=== PATIENT | female | born 1965 | race Caucasian/White ===

== ENCOUNTER → 2016-11-07 | Outpatient (CLI) | payer BC ==
--- NOTE | 2016-11-12 12:24 | MAMMOGRAPHY REPORT ---
BILATERAL DIGITAL SCREENING MAMMOGRAM TOMOSYNTHESIS WITH CAD: 11/07/2016 CLINICAL HISTORY: Routine screening. Patient has no complaints. TECHNIQUE: Breast tomosynthesis in addition to standard 2D mammography was performed. Current study was also evaluated with a Computer Aided Detection (CAD) system. COMPARISON: Comparison is made to exams dated: 08/27/2011 mammogram, 09/04/2012 mammogram, 09/14/20 13 mammogram, and 12/29/2014 mammogram - [facility]. BREAST COMPOSITION: The tissue of both breasts is heterogeneously dense, which may obscure small ma sses. FINDINGS: There is a 5 mm nodular asymmetry in the far superior left breast, only seen on the MLO v iew, that was not clearly seen on prior mammograms. Although this could represent normal overlappin g fibroglandular tissue, additional spot compression tomosynthesis views and possibly ultrasound are recommended. There is possible architectural distortion in the lateral anterior left breast on CC tomosynthesis slice 3336, for which additional spot compression tomosynthesis views and possibly ul trasound are recommended. There is a possible partially circumscribed and partially obscured 8mm ma ss in the middle one third of the left breast, along the posterior nipple line on the MLO view, jennifer anting additional spot compression tomosynthesis views and possibly ultrasound. No suspicious mass, architectural distortion or cluster of microcalcifications is seen within the ri ght breast. IMPRESSION: ACR BI-RADS CATEGORY 0: INCOMPLETE EVALUATION: NEED ADDITIONAL IMAGING EVALUATION The left superior asymmetry, possible architectural distortion in the lateral left breast and possib le 8mm mass in the left breast need additional imaging evaluation. The patient will be called to schedule an appointment. Approximately 10% of breast cancers are not detected with mammography. A negative mammographic repor t should not delay biopsy if a clinically suggestive mass is present. Fanny Colunga M.D. ay/:11/11/2016 21:15:23 [employer] Paper: Emilia RAMON)(Alexis)(BD), [facility] letter sent: Addl Imaging 0 BI-RADS Code: ACR BI-RADS Category 0: Incomplete Evaluation: Need Additional Imaging Evaluation
== END | disposition home or self-care (01) ==
LOC: C.MAMM 09:26
PROVIDERS: ATTEND Obstetrics & Gynecology
DX: Z12.31 Encounter for screening mammogram for malignant neoplasm of breast (principal); N64.9 Disorder of breast, unspecified

== ENCOUNTER → 2016-11-14 | Outpatient (CLI) | payer BC ==
--- NOTE | 2016-11-14 15:37 | MAMMOGRAPHY REPORT ---
UNILATERAL LEFT DIGITAL DIAGNOSTIC MAMMOGRAM TOMOSYNTHESIS AND TARGETED LEFT ULTRASOUND: 11/14/2016 CLINICAL HISTORY: Callback from screening mammogram for left breast asymmetries and possible distort ion. TECHNIQUE: Breast tomosynthesis in addition to standard 2D mammography was performed. Spot edilma kris left CC and MLO 2-D and tomosynthesis images were obtained. COMPARISON: Comparison is made to exams dated: 11/07/2016 mammogram - [facility], 12/29/2014 mammogram, 09/14/2013 mammogram, 09/04/2012 mammogram, and 08/27/2011 mammogram - [facility]. BREAST COMPOSITION: The tissue of the left breast is heterogeneously dense, which may obscure small masses. FINDINGS: The previously described area of possible architectural distortion in the left lateral pe riareolar anterior breast does not persist on the additional spot compression views, with appearance of this region similar to prior exams including the tomosynthesis images from the 2015 exam. The p reviously described asymmetry seen within the left superior breast at the appearance of fibroglandul ar tissue on the tomosynthesis images, and appears similar to the 2015 exam. The previously asymmet ry along the posterior nipple line on the MLO view does not persist on the additional images, and zamora s the appearance of normal fibroglandular tissue. Targeted ultrasound was performed of the left far superior breast in the region of the mammographic asymmetry. In the left breast at 1:00, 10 cm from the nipple, there is a focal island of normal-mellissa earing fibroglandular tissue, which is felt to correlate with the mammographic asymmetry and is mina gn. Targeted ultrasound was performed of the left lateral periareolar breast in the region of the p ossible architectural distortion, which shows no suspicious masses or other suspicious sonographic a bnormalities. IMPRESSION: ACR BI-RADS CATEGORY 2: BENIGN, TARGETED ULTRASOUND ACR BI-RADS CATEGORY 2: BENIGN The left superior breast asymmetry is benign and compatible with normal fibroglandular tissue. No p ersistent architectural distortion is seen in the left lateral anterior breast on the additional vie ws. There is no mammographic or targeted sonographic evidence of malignancy. A 1 year screening librado mogram is recommended. The patient has been verbally notified of the results. Approximately 10% of breast cancers are not detected with mammography. A negative mammographic repor t should not delay biopsy if a clinically suggestive mass is present. Keely Neville M.D. ah/:11/14/2016 14:38:58 Compliance Mgr: Joelle RAMIREZ(Rylan)(M), [facility] letter sent: Normal 1/2 BI-RADS Code: ACR BI-RADS Category 2: Benign Ultrasound BI-RADS: ACR BI-RADS Category 2: Benign
== END | disposition home or self-care (01) ==
LOC: C.MAMM 14:12
PROVIDERS: ATTEND Obstetrics & Gynecology
DX: R92.8 Other abnormal and inconclusive findings on diagnostic imaging of breast (principal)

== ENCOUNTER → 2018-03-19 | Day surgery (SDC) | payer OTHER ==
--- NOTE | 2018-03-03 18:13 | HISTORY & PHYSICAL EXAMINATION ---
DATE OF ADMISSION: 03/19/2018 CHIEF COMPLAINT: Abnormal vaginal bleeding, polyp on transvaginal ultrasound. HISTORY OF PRESENT ILLNESS: The patient is a 52-year-old 3, para 2, 1 spontaneous AB. General health is good. She has had an irregular bleeding pattern for over 8 months. Her periods are every 28-50 days, they last for about 4-5 days. She has 1-2 heavy days where she has clotting, soaking over a pad an hour. Cramps are mild. However, she also has intermittent bleeding between her periods and this can at times be quite heavy with soaking a pad an hour. A transvaginal ultrasound done on 03/03/2018, it showed an endometrial polyp 0.9 cm x 0.6 cm x 0.9 cm, presently being scheduled for an outpatient D and C, hysteroscopy, polypectomy. PAST MEDICAL HISTORY: Two children in good health. ALLERGIES: She has no known drug allergies. PAST SURGICAL HISTORY: She had her hemorrhoids taken out. MEDICAL HISTORY: No history of rheumatic fever, heart disease, heart murmur, diabetes, tuberculosis. SOCIAL HISTORY: No smoking, no excessive alcohol intake. Works as a professor at [employer]. FAMILY HISTORY: Mom is 82 in good health. Father at age 82 of heart failure and infection. Three brothers, 2 sisters in good health. REVIEW OF SYSTEMS: HEAD: No symptoms of frequent or severe headaches. EYES: No symptoms of blurred vision, double vision. EARS: No symptoms of frequent ear infections, difficulty hearing. NOSE: No symptoms of frequent nosebleeds, difficulty breathing through her nose. PHYSICAL EXAMINATION: GENERAL: Well-developed, well-nourished 52-year-old white female, alert, oriented x3 and cooperative, no acute distress, appears her stated age. EYES: Conjunctivae are pink. Sclerae white, no evidence of jaundice. EARS: Had normal light reflex bilaterally. NOSE: Had normal mucosa. Septum is midline. There were no polyps. THROAT: Had no erythema or evidence of infection. Teeth are in good state of repair. HEAD: Was normocephalic, normal distribution of hair. NECK: Supple. Trachea midline. Thyroid is not enlarged. There is no adenopathy appreciated. Both carotids are of good intensity. CHEST: Clear to auscultation and percussion. No wheezes, rales or rhonchi appreciated. HEART: Had regular rhythm. S1 and S2 are normal. BREASTS: Normal. ABDOMEN: Soft and nontender. PELVIC: Cervix appeared normal. Uterus is about 9 weeks' size. There were no adnexal masses appreciated. MUSCULOSKELETAL: Revealed no calf tenderness. IMPRESSIONS OF THIS CASE: Symptomatic endometrial polyp. MTDD
[2018-03-09 13:01] VITALS: Ht 162.6 cm; Wt 62.7 kg
[~2018-03-19] VITALS: Ht 162.6 cm; Wt 62.7 kg
[~2018-03-19] MED LIST: ATROPINE SULFATE 0.1 MG/ML 5ML SYR IV PRN; DEXAMETHASONE SOD INJ 4 MG/ML VIAL ONE; EpHEDrine SULFATE INJ 50 MG/ML AMP IV PRN; FENTANYL CITRATE INJ 50 MCG/1 ML 2 ML VIAL IV PRN; FENTANYL CITRATE INJ 50 MCG/1 ML 2 ML VIAL ONE; HYDROCODONE/ACETAMIN 5/325MG TAB PO PRN; IBUPROFEN 200 MG TAB ONE; IBUPROFEN 600 MG TAB PO PRN; KETOROLAC TROMETHAMINE 30 MG/ML VIAL IV. PRN; KETOROLAC TROMETHAMINE 30 MG/ML VIAL ONE; LACTATED RINGER'S 1000ML 1,000 ML IV SCH; LIDOCAINE HCL 2% 2 ML VIAL (20MG/ML) ONE; MIDAZOLAM HCL 1 MG/ML 2ML VIAL ONE; ONDANSETRON INJ 2 MG/ML 2 ML VIAL IV PRN; ONDANSETRON INJ 2 MG/ML 2 ML VIAL ONE; OXYCODONE/ACETAMINOPHEN 5-325 TAB PO PRN; PROPOFOL IV EMULSION 10 MG/ML 20 ML VIAL ONE; SODIUM CHLORIDE 0.9% 1000ML 1,000 ML IV SCH
--- NOTE | 2018-03-19 11:03 | History & Physical Bridge Note ---
H&P Re-Evaluation Bridge Note: I have examined the patient, reviewed the History & Physical and in the interval since the performance of the History & Physical I have noted the following changes of clinical significance: No changes noted
--- NOTE | 2018-03-19 11:36 | [facility] Post Operative Brief Note ---
Immediate Operative Summary Operative Date Mar 19, 2018. Pre-Operative Diagnosis Abnormal bleeding pattern and polyp Post-Operative Diagnosis Abnormal bleeding pattern and polyp utreus sounded to 9 cm Procedure(s) Performed Dilatation And Curettage, Hysteroscopy, Polypectomy Surgeon Dr. Lacho Hirsch [facility] Sales Consultant Surgeon(s) None Estimated Blood Loss 50ml Findings Consistent with Post-Op Diagnosis Fluids (cc crystalloids) 900 ml Specimens A: Endometrial polyp B: Endometrial curettings Drains None Anesthesia Type General Complication(s) none Disposition Accompanied Pt To Recover: no Disposition: Recovery Room / PACU Overlapping Procedure I was immediately available: during the entire case
--- NOTE | 2018-03-19 11:45 | Discharge Instructions-SurgCtr ---
Discharge Instructions Date of Service Mar 19, 2018. Visit Reason for Visit: Irregular Vaginal Bleeding, Endometrial Polyp Discharge Discharge Diagnosis / Problem: irregular vaginal bleeding endometrial polyp Discharge Goals Goal(s): Learn about illness, Therapeutic intervention Activity Recommendations Activity Limitations: as noted below ACTIVITY RECOMMENDATIONS: * Avoid tampons, douching, hot tubs, pools, and intercourse until bleeding has stopped. * May shower as usual. * No strenuous activity for 24-48 hours. After 24-48 hours, you may do anything you feel like doing (driving and sports are okay). SPECIAL CARE INSTRUCTIONS: Special Diet: * Mild nausea may occur in the immediate post-operative period. * Take clear liquids such as tea, cola or bouillon until all nausea has subsided; you may then resume your normal diet. Special Care: * Light bleeding and vaginal spotting can last from a few days to 3-4 weeks. Call your doctor if bleeding becomes heavier than the heaviest part of your period. * Check your temperature twice a day for one week. If it goes above 100.4 degrees Fahrenheit (38.0 Celsius), notify your doctor. * Call your doctor's office for an appointment for 6 weeks after your surgery. FOLLOW-UP VISIT: Call your doctor's office for an appointment for 6 weeks after your surgery. Anesthesia . Post Anesthesia Instructions: If you have had General Anesthesia or IV Sedation: * Do not drive today. * Resume driving when surgeon permits. * Do not make important decisions or sign legal documents today. * Call surgeon for: 1. Temperature elevations greater than 101 degrees F. 2. Uncontrollable pain. 3. Excessive bleeding. 4. Persistent nausea and vomiting. 5. Medication intolerance (nausea, vomiting or rash). * For nausea and vomiting use only clear liquids such as: tea, soda, bouillon until nausea subsides, then gradually increase diet as tolerated. * If you have any concerns or questions, call your surgeon's office. If physician is unavailable and it is an emergency, call 911 or go to the nearest emergency room. . Instructions / Follow-Up Instructions / Follow-Up ACTIVITY RECOMMENDATIONS: * Avoid tampons, douching, hot tubs, pools, and intercourse until bleeding has stopped. * May shower as usual. * No strenuous activity for 24-48 hours. After 24-48 hours, you may do anything you feel like doing (driving and sports are okay). SPECIAL CARE INSTRUCTIONS: Special Diet: * Mild nausea may occur in the immediate post-operative period. * Take clear liquids such as tea, cola or bouillon until all nausea has subsided; you may then resume your normal diet. Special Care: * Light bleeding and vaginal spotting can last from a few days to 3-4 weeks. Call your doctor if bleeding becomes heavier than the heaviest part of your period. * Check your temperature twice a day for one week. If it goes above 100.4 degrees Fahrenheit (38.0 Celsius), notify your doctor. * Call your doctor's office for an appointment for 6 weeks after your surgery. FOLLOW-UP VISIT: Call your doctor's office for an appointment for 6 weeks after your surgery. Diet Recommendations Home Diet: resume previous diet Procedures Procedures Performed: Dilatation And Curettage, Hysteroscopy, Polypectomy Pending Studies Studies pending at discharge: no Medical Emergencies . Who to Call and When: Medical Emergencies: If at any time you feel your situation is an emergency, please call 911 immediately. . Non-Emergent Contact Non-Emergency issues call your: Chief Technical Officer Call Non-Emergent contact if: temperature is above 100.5 . . "Provider Documentation" section prepared by Lacho Hirsch. .
--- NOTE | 2018-03-19 12:07 | Anesthesia Progress Nt - [facility] ---
Anesthesia Post Op Note Date & Time Mar 19, 2018 at 12:07 Vital Signs Pain Intensity: 0 Vital Signs Past 12 Hours Date Time Temp Pulse Resp B/P (MAP) Pulse Ox O2 Delivery O2 Flow Rate FiO2 03/19/18 11:50 109/71 03/19/18 11:49 71 11 03/19/18 11:49 74 11 98 03/19/18 11:45 101/64 03/19/18 11:44 68 03/19/18 11:44 81 103/66 96 03/19/18 11:44 36.2 76 12 103/66 96 Diffusion Mask 6 03/19/18 07:29 36.6 70 16 111/76 (88) 98 Room Air Notes Mental Status: alert / awake / arousable, participated in evaluation Pt Amnestic to Procedure: Yes Nausea / Vomiting: adequately controlled Pain: adequately controlled Airway Patency, RR, SpO2: stable & adequate BP & HR: stable & adequate Hydration State: stable & adequate Anesthetic Complications: no major complications apparent
--- NOTE | 2018-03-19 12:28 | OPERATIVE REPORT ---
DATE OF OPERATION: 03/19/2018 PROCEDURES: D&C, hysteroscopy, polypectomy. INDICATIONS FOR SURGERY: Irregular heavy vaginal bleeding. PREOPERATIVE DIAGNOSIS: Endometrial polyp on transvaginal ultrasound. POSTOPERATIVE DIAGNOSIS: Polyp confirmed by hysteroscopy. Uterus sounded to 9 cm. SURGEON: Dr. Hirsch. ESTIMATED BLOOD LOSS: 50 mL ANESTHESIA: General. OPERATIVE FINDINGS AND PROCEDURE: Patient was brought to the OR table, correctly identified by armband and conversation. General anesthesia was administered. Perineum and vagina were painted with Betadine paint, draped in usual sterile fashion. Careful pelvic exam under anesthesia revealed a mid position uterus. There were no adnexal masses appreciated. Weighted speculum was placed in posterior vagina. Anterior lip of cervix grasped with single tooth tenaculum. Uterus sounded to 9 cm. Cervix was dilated with graduated dilators. Hysteroscope was placed in the uterine cavity. Photographs were taken. The endometrial polyp was identified and the right tubal ostia was identified. The left tubal ostia was not. Instruments were removed and then a polyp forceps was used to remove the polyp after a couple attempts, then I used a small sharp serrated curet to thoroughly curette out the entire endometrial cavity, some additional pieces of tissue were obtained. The polyp and the scrapings were sent separately. Following this, we reintroduced the hysteroscope, documented that the polyp had been removed and following this, hemostasis was good. Instruments were removed. Patient tolerated the procedure well and left the OR in good condition. I attest to the content of the Intraoperative Record and any orders documented therein. Any exception s are noted below.
[2018-03-19 12:31] VITALS: TEMP 36.6
[2018-03-19 12:51] VITALS: BP 116/71; PULSE 48; O2SAT 100
== END | disposition home or self-care (01) ==
LOC: X.SURG 07:06
PROVIDERS: ATTEND Obstetrics & Gynecology
DX: N93.9 Abnormal uterine and vaginal bleeding, unspecified (principal)

== ENCOUNTER 2018-04-13 21:16 | Emergency (ER) | payer OTHER ==
[2018-04-13 21:17] VITALS: TEMP 36.7; Ht 162.6 cm
[2018-04-13] MEDS ORDERED: KETOROLAC TROMETHAMINE 60 MG/2 ML VIAL IM STA (21:34)
--- NOTE | 2018-04-13 23:02 | DIAGNOSTIC IMAGING REPORT ---
PELVIS 1 OR 2 VIEW ROUTINE, R FEMUR 2 VIEWS ROUTINE CLINICAL HISTORY: Fall, R hip and posterior R leg pain COMPARISON STUDY: None. FINDINGS: No fracture or dislocation within the pelvis, hips, or right femur. Soft tissues are unremarkable. No radiopaque foreign bodies. IMPRESSION: No fractures within the pelvis, hips, or right femur. Electronically signed by: Zachary Villasenor M.D. 04/13/2018 11:00 PM Dictated Date/Time: 04/13/2018 10:59 PM
--- NOTE | 2018-04-13 23:08 | EMERGENCY ROOM VISIT NOTE ---
History First contact with patient: 21:27 Chief Complaint: LEG PAIN,LEG INJURY Stated Complaint: PAIN IN RT LEG History of Present Illness The patient is a 52 year old female who presents to the Emergency Room via private vehicle accompanied by family with complaints of "pain in right leg". The patient states that just prior to arrival, while at home she was walking and tripped over the dog noting that she did a near split with her legs. She states that now she has pain in the posterior right thigh extending to her right hip region. She rates the pain as a 6/10. She denies striking her head, loss of consciousness, abdominal pain, head or neck pain. Review of Systems A complete 6-point Review of Systems was discussed with the patient, with pertinent positives and negatives listed in the History of Present Illness. All remaining Review of Systems questions can be considered negative unless otherwise specified. Past Medical/Surgical History No pertinent. Family History No pertinent. Social History Smoking Status: Never Smoker Patient lives locally. Current/Historical Medications No Active Prescriptions or Reported Meds Physical Exam Vital Signs Date Time Temp Pulse Resp B/P (MAP) Pulse Ox O2 Delivery O2 Flow Rate FiO2 04/13/18 23:17 68 18 120/75 96 Room Air 04/13/18 21:17 36.7 80 18 151/79 95 Room Air Physical Exam VITAL SIGNS - Vital signs and nursing notes were reviewed. Stable. Afebrile. GENERAL -52-year-old female appearing her stated age who is in no acute distress. Communicates well with provider and answers questions appropriately. SKIN - Without rashes. No meningeal or petechial rash. The integument is intact overlying the right lower extremity. No bony deformity noted. HEAD - NC/AT. EYES -no hyphema. EARS -no blood from the ear canals. NOSE -no epistaxis. MOUTH/OROPHARYNX - Without perioral cyanosis. NECK -no C-spine tenderness. LUNGS - Chest wall symmetric without accessory muscle use, intercostals retractions, or central cyanosis. Normal vesicular breath sounds CTA B/L. No wheezes, rales, or rhonchi appreciated. CARDIAC - RRR with S1/S2. No murmur, rubs, or gallops appreciated. EXTREMITIES - No clubbing or peripheral cyanosis. No pretibial edema present. There is point tenderness overlying the musculature of the patient's entire right posterior thigh/hamstring region. There is no rolled muscle or evidence of complete detachment. Decreased range of motion noted of the hip region. Patient is able to flex at the knee and hip. Tendinous insertion sites appear intact. There is no quadriceps tenderness. No bony tenderness overlying the remainder of the pelvis or knee region. Extremity below the right knee is unremarkable. Excellent neurovascular status distally. +5/5 strength noted in UE/LE bilaterally. Medical Decision & Procedures ER Provider Diagnostic Interpretation: PELVIS 1 OR 2 VIEW ROUTINE, R FEMUR 2 VIEWS ROUTINE CLINICAL HISTORY: Fall, R hip and posterior R leg pain COMPARISON STUDY: None. FINDINGS: No fracture or dislocation within the pelvis, hips, or right femur. Soft tissues are unremarkable. No radiopaque foreign bodies. IMPRESSION: No fractures within the pelvis, hips, or right femur. Electronically signed by: Zachary Villasenor M.D. 04/13/2018 11:00 PM Dictated Date/Time: 04/13/2018 10:59 PM Medications Administered Medications (Trade) Dose Ordered Sig/Nemesio Route Start Time Stop Time Status Last Admin Dose Admin Ketorolac Tromethamine (Toradol Inj) 60 mg NOW STAT IM 04/13/18 21:34 04/13/18 21:35 DC 04/13/18 22:01 60 MG Medical Decision Patient was seen and evaluated as above in room D9. Review was performed of nursing notes and vital signs. After obtaining a thorough history and physical examination the above work up was performed. She presents to us today with right posterior thigh pain. I suspect musculoskeletal strain. No evidence of complete detachment on my examination here today. X-ray was obtained of the pelvis and right femur. These were unremarkable. I suspect musculoskeletal strain but did inform her upon importance of follow-up in the event of persistence of symptoms. She was given crutches to be nonweightbearing and an Ocdy wrap for compression. At this time the joint above and below her area of pain are intact. Pain is mostly as discussed in the right posterior thigh region. She is to call orthopedics first thing tomorrow or return with worsening. She declined pain medication for discharge but was given Toradol here for pain and noted improvement. The patient was educated upon management, had questions answered prior to discharge, and was discharged home in good condition. In the evaluation and treatment of this patient, the following differential diagnoses were considered: Hip Fracture, Hip Dislocation, Greater Trochanteric Bursitis, Musculoskeletal Pain, Lumbar Radiculopathy. Impression Primary Impression: Leg pain, right Additional Impression: Hamstring injury Departure Information Dispostion Home / Self-Care Condition GOOD Prescriptions No Active Prescriptions or Reported Meds Referrals Emilia Sher M.D. (PCP) Tavon Zamora M.D. Patient Instructions My [facility] Additional Instructions You have been treated in the Emergency Department for Hip Pain. For pain control, you can use the following [id number]-[id number] medicines (if >12 yo): - Regular strength (325mg/tab) Tylenol (acetaminophen) 2 tabs every 4-6 hours as needed. Do not exceed 12 tablets in a 24 hour period. Avoid taking more than 3 grams (3000 mg) of Tylenol per day. This includes any other sources of acetaminophen you may take on a regular basis. - Regular strength (200 mg/tab) Advil (ibuprofen) 1-2 tabs every 4-6 hours as needed. Do not exceed a dose of 3200 mg per day. If this is a recent injury (<24 hrs), ice can be applied to the area of pain for the first 3 days to help decrease pain and inflammation. Ice massages can be performed by freezing water in a paper cup, peeling back the cup to expose the ice and then massaging over the affected area. You have been provided the number for an Orthopaedic Surgeon. You should call this number as soon as possible to establish a follow-up visit from today's Emergency Department visit. Be cautious with your hip movements until your pain is tolerable. Use the crutches you have been provided to keep ALL weight off of the hip until weight bearing is tolerable. Return to the Emergency Department if your current symptoms worsen despite treatment course outlined above. Problem Qualifiers
[2018-04-13 23:17] VITALS: BP 120/75; PULSE 68; O2SAT 96
== END 2018-04-13 23:31 | disposition home or self-care (01) ==
LOC: C.EDB 21:17 → C.EDD 23:31
DX: S76.301A Unspecified injury of muscle, fascia and tendon of the posterior muscle group at thigh level, right thigh, initial encounter (principal); W01.0XXA Fall on same level from slipping, tripping and stumbling without subsequent striking against object, initial encounter; Y92.009 Unspecified place in unspecified non-institutional (private) residence as the place of occurrence of the external cause

== ENCOUNTER 2020-06-05 05:34 | Observation (INO) ==
--- NOTE | 2020-05-17 10:00 | PAT Medication Instructions ---
Medication Instructions Date of Service May 17, 2020 Home Medications ibuprofen 400 mg PO Q6H PRN ASK your surgeon for instructions ibuprofen 400 mg PO Q6H PRN Other Notes If you have any questions please call us at [phone] or [phone] or [phone] or [phone]
--- NOTE | 2020-05-18 12:11 | Anesthesiology Consultation ---
Date of Service May 18, 2020 Assessment & Plan (1) Encounter for pre-operative examination: Chart Review Chart Review: Acceptable Risk for Surgery (pending preop Covid testing ) and Patient seen in Pre Admission Testing Discussed preop EKG with Dr. Quarles- EKG unchanged from 2018. Pt has good functional status. Patient able to proceed with surgery as scheduled - Check test AM DOS Per PAT appt on 05/18/20, patient traveled to [place] to go camping- no contacts by others. Wears mask in public. Returned to [place] 05/07/20. Educated patient to follow up with surgeon's office regarding Covid testing. Educated on importance of self quarantining, social distancing and wearing mask in public both for the patient and household contacts. Teaching & Discussion Pre-Anesthesia Teaching/Discussion Notes: Instructed NPO after midnight before surgery,except medications with 15 cc of water. Medication instructions provided according to the [facility] guidelines. History Surgery Operation Date: 06/05/20 07:30 Proposed Procedures p Robotic Total Laparoscopic Hysterectomy - Cindy Carmen MD, FACOG Height/Weight Height: 5 ft 4 in Weight: 61.8 kg Allergies Allergy/AdvReac Type Severity Reaction Status Date / Time No Known Drug Allergies Allergy Verified 05/18/20 11:01 Medications Home Medications Medication Instructions Recorded Confirmed Last Taken ibuprofen 400 mg PO Q6H PRN 05/08/20 05/18/20 Unknown Past Medical History Medical History Endometrial polyp x 2 Postmenopausal bleeding (10/2019) Exercise / Class Metabolic Activity II 4-5 Yardwork/Stairs/Walk up hill (one flight of stairs- no chest pain or SOB) Past Family History Family History Denies family history of Cervical cancer Ovarian cancer Deep vein thrombosis Coronary heart disease Breast cancer Colorectal cancer Uterine cancer Past Surgical History Surgical History H/O dilation and curettage (2017) x2 for endometrial polyp History of colonoscopy (2015) Hx of melanoma of skin with removal to right forearm S/P tubal ligation Status post wisdom tooth extraction Past Anesthesia History No Hx of Anesthesia Complications and No Family Hx of Anesthesia Complications History of PONV No Hx of PONV and No Hx of Motion Sickness Social History Smoking Status: Never smoker Do You Dip or Chew Tobacco: No Hx Alcohol Use: Yes Alcohol type: wine alcohol intake frequency: a few times a week Hx Substance Use: No substance use type: does not use Review of Systems Patient denies chest pain, shortness of breath, dyspnea on exertion, reflux, cough, wheezing, palpitations. No hx of seizures, stroke, DC, apnea/snoring. No hx of blood clots or blood transfusions Physical Exam Vital Signs VITALS BP 110/76 P 82 TEMP 98.2 SP02 97% RESP 16 Constitutional no acute distress ENMT Mouth: no TMJ clicking Thyromental Distance: < 3.5 Finger Breadths (3.0) Mallampati Class: III Teeth pulled directly behind incisors bilaterally on top teeth Neck neck extension not limited Respiratory normal respiratory effort; no respiratory distress Auscultation: lungs clear to auscultation bilaterally; no wheezes Cardiovascular Rate/Rhythm: regular rate and regular rhythm (with extra beat ) Heart Sounds: no murmur Vessels: no carotid bruit Musculoskeletal Spine: no pain with cervical ROM Neurologic moves all extremities Psychiatric Orientation: alert Testing Laboratory Results 05/18/20 12:39 05/18/20 12:34 Blood Type A Positive 05/18/20 12:39 Antibody Screen NEGATIVE 05/18/20 12:39 Electrocardiogram Date: 05/18/20 Sinus rhythm with PACs in a pattern of bigeminy at 60 bpm. Otherwise normal EKG. Per cardio- no significant change from March 11, 2018.
[2020-05-18 13:20] LABS: Basophils # (auto) 0.04 K/uL (0-0.2); Basophils % (auto) 0.6 %; Eosinophils # (auto) 0.04 K/uL (0-0.5); Eosinophils % (auto) 0.6 %; Hematocrit (blood only) 43.2 % (37-47); Hemoglobin 14.5 g/dL (12.0-16.0); Immature Granulocytes # (auto) 0.03 K/uL (0.00-0.02); Immature Granulocytes % (auto) 0.5 %; Lymphocytes # (auto) 2.73 K/uL (1.2-3.4); Lymphocytes % (auto) 42.2 %; Mean Corpuscular Hemoglobin 31.1 pg (25-34); Mean Corpuscular Hgb Conc 33.6 g/dL (32-36); Mean Corpuscular Volume 92.7 fL (80-100); Mean Platelet Volume 10.8 fL (7.4-10.4); Monocytes # (auto) 0.36 K/uL (0.11-0.59); Monocytes % (auto) 5.6 %; Neutrophils # (auto) 3.27 K/uL (1.4-6.5); Neutrophils % (auto) 50.5 %; Platelet Count 274 K/uL (130-400); RDW Coefficient of Variation 13.6 % (11.5-14.5); RDW Standard Deviation 45.9 fL (36.4-46.3); Red Blood Count 4.66 M/uL (4.2-5.4); White Blood Count 6.47 K/uL (4.8-10.8)
[2020-05-18 15:40] LABS: BUN Creatinine Ratio 17.6 (10-20); Calcium 9.6 mg/dl (8.5-10.1); Creatinine Clr Calc Pharmacy 64.6 ml/min; Est GFR (African American) 89.4; Est GFR (Non-African American) 77.1; Potassium 4.5 mmol/L (3.5-5.1)
--- NOTE | 2020-05-19 06:49 | Electrocardiogram Report ---
Test Reason : Blood Pressure : / mmHG Vent. Rate : 060 BPM Atrial Rate : 060 BPM P-R Int : 180 ms QRS Dur : 078 ms QT Int : 444 ms P-R-T Axes : 067 055 072 degrees QTc Int : 444 ms Sinus rhythm with Premature atrial complexes in a pattern of bigeminy Otherwise normal ECG When compared with ECG of 11-MAR-2018 15:08, No significant change was found Confirmed by Seven Starks ([id number]) on 05/19/2020 6:49:44 AM Referred By: Cindy Carmen Confirmed By:Seven Starks
[2020-06-05] MEDS ORDERED: CEFAZOLIN 2000MG 2,000 MG/15 ML SYR IV SCH (06:00)
[2020-06-05] MEDS ORDERED: LACTATED RINGER'S 1,000 ML IV SCH ×2 (06:00→11:15)
[2020-06-05] MEDS ORDERED: LR 15ML/HR IV SCH (06:00)
--- NOTE | 2020-06-05 07:03 | History & Physical Bridge Note ---
Date of Service June 05, 2020 History & Physical Bridge Note I have examined the patient, reviewed the History & Physical and in the interval since the performance of the History & Physical I have noted the following changes of clinical significance: no changes noted
[2020-06-05] MEDS ORDERED: ONDANSETRON INJ 2 MG/ML 2 ML VIAL ONE (07:14)
[2020-06-05] MEDS ORDERED: LIDOCAINE HCL 2% 2 ML VIAL/AMP(20MG/ML) INFIL ONE (07:14)
[2020-06-05] MEDS ORDERED: GLYCOPYRROLATE 0.2 MG/ML VIAL ONE (07:14)
[2020-06-05] MEDS ORDERED: fentaNYL citrate 100 MCG/2 ML VIAL ONE (07:14)
[2020-06-05] MEDS ORDERED: DEXAMETHASONE SOD INJ 4 MG/ML VIAL ONE (07:14)
[2020-06-05] MEDS ORDERED: ROCURONIUM BROMIDE 10 MG/ML 5 ML VIAL IV ONE (07:14)
[2020-06-05] MEDS ORDERED: NEOSTIGMINE METHYLSULFATE 5 MG/5 ML SYR ONE (07:14)
[2020-06-05] MEDS ORDERED: PROPOFOL IV EMULSION 10 MG/ML 20 ML VIAL IV ONE (07:14)
[2020-06-05] MEDS ORDERED: MIDAZOLAM HCL 1 MG/ML 2ML VIAL ONE (07:14)
[2020-06-05] MEDS ORDERED: BUPIVACAINE 0.5 % 5 MG/1 ML MPF 30ML VIAL ONE (07:26)
[2020-06-05] MEDS ORDERED: PROMETHAZINE HCL 12.5 MG in SODIUM CHLORIDE 0.9% 50 ML IV PRN ×2 (08:26→11:15)
[2020-06-05] MEDS ORDERED: ONDANSETRON INJ 2 MG/ML 2 ML VIAL IV PRN ×2 (08:26→11:15)
[2020-06-05] MEDS ORDERED: ePHEDrine sulfate 50 MG/ML AMP IV PRN (08:26)
[2020-06-05] MEDS ORDERED: HYDROmorphone INJ 1 MG/ML SYRINGE IV PRN (08:26)
[2020-06-05] MEDS ORDERED: ATROPINE SULFATE 0.1 MG/ML 10ML SYR IV PRN (08:26)
[2020-06-05] MEDS ORDERED: TISSEEL FIBRIN SEALANT 4ML TOP ONE (08:34)
[2020-06-05] MEDS ORDERED: METHYLENE BLUE 0.5% 10 ML VIAL ONE (08:45)
--- NOTE | 2020-06-05 09:56 | Operative Report ---
PG Post Operative Report Pre & Post Diagnosis Operation Date: 06/05/20 07:30 Pre-Op Diagnosis: Post Menopausal Bleeding Post-Op Diagnosis: Post Menopausal Bleeding I identified the patient and participated in the time-out.: Yes Procedure Operation Date: 06/05/20 07:30 Actual Procedures p Robotic Total Laparoscopic Hysterectomy, Bilateral Salpingectomy, Cystoscopy - Cindy Carmen MD, FACOG Surgeon Cindy Carmen MD, FACOG Leather Splitter . Estimated Blood Loss 20 Findings Consistent with Post-Op Diagnosis Specimens Uterus cervix bilateral fallopian tubes Description of Procedure Patient was given a general anesthetic, prepped and draped in dorsal lithotomy position in yellow fin luís stirrups. Care was taken to position the legs and arms properly with no excess pressure on any area. Pre-operative antibiotics were given and SCDs applied earlier. Nathan catheter was inserted into her bladder, V-Care manipluator was placed in the uterus and sutured in place. Gloves were changed and then a supra-umbilical incision was made with scalpel, using David technique, we dissected through the subcutaneous fat, fascia, split the rectus muscles and then entered the peritoneal cavity.. Blunt tip David Trochar then inserted and balloon inflated to stabilize the port. CO2 gas was then used to insufflate the peritoneal cavity. Findings. Normal uterus ovaries and fallopian tubes Deep tendelenberg position was obtained. 2 robotic ports were then placed, one on the left, one on the right side under direct visualization. 11mm bladeless accessory port placed in left upper quadrant under direct visualization. Robot docked. Arm #1 Monopolar artem, arm #2 Bipolar [place] grasper. Fallopian tubes were identified and removed with the monoplar artem and removed thru the accessory port. Ureter was identified on each side and followed a normal course. Distal to the left ovary, the blood supply was coagulated with the bipolar [place] and then cut with Artem. We were well away from the ureter. Round ligament was coagulated and then cut. Uterine vessels were then skeletonized, bladder flap was sharply dissected away with artem. Uterine vessels were then coagulated close to the cervix staying away from the left ureter. Vessels then cut. The exact same process was repeated on the right side taking note of the location of the right ureter at all times. Colpotomy was then performed with the monopolar artem, once completed, the specimen was removed through the vagina. A sponge in a glove was then placed in the vagina to maintain pneumoperitoneum. Instrument exchange then occurred. Arm #1 became the ARELIS needle water tanker driver, Arm # 2 became the Cobra Grasper. 12 inch 2-0 V-Lock 90 day suture was placed through the accessory port. Cuff was closed from left to right, then back taking at least 1cm full thickness bites of vaginal mucosa. Suture was cut so there was no tail, needle removed through the accessory port. Sponge removed from the vagina and seal air tight. Generous irrigation and suction, hemostasis excellent, Tisseal applied to pedicles. Cystoscopy performed and no injury to the bladder, no sutures noted, good strong jets of blue colored dye were noted from both right and left ureter openings. Cystoscope removed and a new nathan catheter placed. Robot undocked, instruments, ports removed. gas allowed to escape. Incisions injected with Marcaine, fascia closed in the umbilical and a deep stitch into the accessory port with 0-Vicryl. 4-0 subcuticular skin closures on all incisions, dermabond apllied. Sponge and instrument counts correct. I attest to the content of the Intraoperative Record and any orders documented therein. Any exceptions are noted below.
[2020-06-05] MEDS: fentaNYL citrate 100 MCG/2 ML VIAL IV PRN ×2 (09:57→10:38)
[2020-06-05] MEDS ORDERED: MEPERIDINE HCL 25 MG/ML CARP/VIAL ONE (10:01)
[2020-06-05] MEDS ORDERED: MEPERIDINE HCL 25 MG/ML CARP/VIAL IV PRN (10:01)
--- NOTE | 2020-06-05 11:07 | Anesthesiology Progress Note ---
Date of Service June 05, 2020 Anesthesia Post Procedure Vital Signs Vital Signs: Temp Pulse Pulse Resp BP BP Pulse Ox 06/05/20 10:55 54 L 12 121/73 98 06/05/20 10:45 52 L 12 122/76 97 06/05/20 10:35 36.4 C L 50 L 12 124/80 99 06/05/20 10:30 50 L 12 124/80 99 06/05/20 10:20 52 L 12 122/78 98 06/05/20 10:10 61 12 133/82 100 06/05/20 10:00 60 12 137/86 100 06/05/20 09:50 36.3 C L 78 12 123/80 100 06/05/20 06:18 36.8 C 69 18 118/49 L 96 Pain Intensity Abdomen: Pain Intensity: 4 Transfer of Care Handoff Completed per policy Notes Mental Status: alert / awake / arousable and participated in evaluation Patient Amnestic to Procedure: Yes Nausea / Vomiting: adequately controlled Pain: adequately controlled Airway Patency, RR, SpO2: stable & adequate BP & HR: stable & adequate Hydration State: stable & adequate Anesthetic Complications: no major complications apparent and Pt Satisfied with anesthetic care
[2020-06-05] MEDS ORDERED: MEPERIDINE HCL 50 MG/ML CARP IV PRN (11:15)
[2020-06-05] MEDS ORDERED: KETOROLAC 30 MG/ML VIAL IV PRN (11:15)
[2020-06-05] MEDS ORDERED: ZOLPIDEM TARTRATE 5 MG TAB PO PRN (11:15)
[2020-06-05] MEDS ORDERED: MAGNESIUM HYDROXIDE SUSP 30 ML UDC PO PRN (11:15)
[2020-06-05] MEDS ORDERED: bisacodyL 10 MG SUPP PR PRN (11:15)
[2020-06-05] MEDS ORDERED: IBUPROFEN 600 MG TAB PO PRN (11:15)
[2020-06-05] MEDS ORDERED: OXYCODONE/ACETAMINOPHEN 5mg/325mg TAB PO PRN ×2 (11:15)
[2020-06-05] MEDS ORDERED: KETOROLAC 30 MG/ML VIAL ONE (11:24)
[2020-06-05] MEDS ORDERED: DOCUSATE SODIUM 100 MG CAP PO SCH (21:00)
--- NOTE | 2020-06-06 13:49 | Discharge Summary ---
Date of Service June 06, 2020 Admission HPI Per Admitting Provider laparoscopic hyst performed and was discharged on the same day a few hours after surgeryWhat time the patient was ambulating well tolerating an what time the patient was ambulating well tolerating an oral diet pain was well-controlled had no bleedingoral diet pain was well-controlled had no bleeding Discharge Data Procedures Performed Operation Date: 06/05/20 07:30 Actual Procedures p Robotic Total Laparoscopic Hysterectomy, Bilateral Salpingectomy, - Cindy Carmen MD, FACOG s Cystoscopy - Cindy Carmen MD, FACOG Hospital Course (1) Postmenopausal bleeding: She met discharge criteria and was sent home Coding Level of Care Code None Diagnoses Postmenopausal bleeding N95.0
== END 2020-06-05 14:45 | disposition home or self-care (01) ==
LOC: ASU 05:34 → 4N 05:34